=== PATIENT | male | born 1980 ===

== ENCOUNTER 2025-03-20 10:17 | Emergency (ER) | payer OTHER ==
[2025-03-20] MEDS: Diphtheria,Pertussis(Acell),Tetanus Vaccine 0.5 ML Syringe IM ONE (11:04)
[2025-03-20] MEDS: Bacitracin Oint 1 GM U/D Packet TOP ONE (11:04)
== END 2025-03-20 11:22 | disposition home or self-care (01) ==
LOC: MW.ED 10:17
DX: S69.92XA Unspecified injury of left wrist, hand and finger(s), initial encounter (principal); I10 Essential (primary) hypertension; J45.909 Unspecified asthma, uncomplicated; Z79.899 Other long term (current) drug therapy; W26.8XXA Contact with other sharp object(s), not elsewhere classified, initial encounter
CPT/HCPCS: 73140-26-FA; 73140-FA; 90471; 90715; 99283; 99283-25